=== PATIENT | female | born 1985 | race Caucasian/White ===

== ENCOUNTER 2017-12-29 17:17 | Emergency (ER) | payer OTHER ==
[~2017-12-29] VITALS: Ht 154.9 cm; Wt 68.2 kg
[2017-12-29] MEDS ORDERED: DIAZEPAM 5 MG TABLET PO ONE (18:30)
[2017-12-29 19:50] VITALS: BP 129/75
== END 2017-12-29 19:57 | disposition home or self-care (01) ==
LOC: EMS 17:18
DX: S39.012A Strain of muscle, fascia and tendon of lower back, initial encounter (principal); X58.XXXA Exposure to other specified factors, initial encounter; Y93.89 Activity, other specified; Y92.89 Other specified places as the place of occurrence of the external cause; Y99.8 Other external cause status
CPT/HCPCS: 72100; 99284

== ENCOUNTER 2019-08-17 22:22 | Emergency (ER) | payer MEDICAID, OTHER ==
[~2019-08-17] VITALS: Ht 154.9 cm; Wt 77.3 kg
[2019-08-17 22:28] VITALS: BP 114/80
[2019-08-18] MEDS ORDERED: IBUPROFEN 800 MG TABLET PO ONE (00:30)
== END 2019-08-18 00:20 | disposition home or self-care (01) ==
LOC: EMS 22:22
DX: S29.012A Strain of muscle and tendon of back wall of thorax, initial encounter (principal); S80.01XA Contusion of right knee, initial encounter; W18.39XA Other fall on same level, initial encounter; Y93.89 Activity, other specified; Y92.89 Other specified places as the place of occurrence of the external cause; Y99.8 Other external cause status